=== PATIENT | male | born 1985 | race Caucasian/White ===

== ENCOUNTER 2021-03-25 18:33 | Emergency (ER) | payer BC ==
[~2021-03-25] VITALS: Ht 167.6 cm; Wt 100.0 kg
[2021-03-25] MEDS ORDERED: LORTAB 1010 MG PO (19:06)
[2021-03-25] MEDS ORDERED: AMOXICILLIN500 MG PO (19:06)
[2021-03-25 20:00] VITALS: BP 120/72
== END 2021-03-25 20:00 | disposition home or self-care (01) | DRG 605 ==
LOC: ED 18:33
PROC: 0HDRXZZ Extraction of Toe Nail, External Approach (ICD-10-PCS; principal; 2021-03-25)
DX: S91.201A Unspecified open wound of right great toe with damage to nail, initial encounter (principal); W50.0XXA Accidental hit or strike by another person, initial encounter